=== PATIENT | female | born 1975 | race Caucasian/White ===

== ENCOUNTER 2018-10-12 17:58 | Emergency (ER) | payer MEDICAID ==
[~2018-10-12] VITALS: Wt 71.0 kg
[~2018-10-12 17:58] MED LIST: ACET325T33 PO; DOCU-144 PO; IBUP200C11 PO; NAPR-985 PO; POLY17PO6 PO
[2018-10-12] MEDS ORDERED: KETOROLAC 30 MG INJ IM STA (20:24)
[2018-10-12] MEDS ORDERED: DIPHENHYDRAMINE 25 MG CAP PO ONE (20:30)
[2018-10-12] MEDS ORDERED: METOCLOPRAMIDE 10 MG TAB PO ONE (20:30)
--- NOTE | 2018-10-12 20:33 | ERD ---
ER Documentation Chief Complaint Chief Complaint HEADACHE X 1 DAY HPI This is a 42-year-old female who presents to emerge department with complaints of headache for about a day. Complains of mild sensitivity to light . LMP: Last month. . Denies loss of consciousness, dizziness, neck pain, neck stiffness, throat pain, difficulty swallowing, difficulty breathing lying flat, shoulder pain, chest pain, back pain, abdominal pain, nausea, vomiting, constipation, diarrhea, urinary symptoms, or possibility being , loss of bowel and bladder control, trauma, injury, falls, difficulty walking due to pain, numbness or tingling sensation, calf pain, recent travel, recent major surgery in the last 3 weeks, calf pain, recent long travel, recent exposure to any illness, recent antibiotic use in the last 3 months, fever, chills, seizures. Past medical history: Surgical history: Appendectomy. Social: Denies smoking, use of alcoholic beverages, use of illegal drugs. ROS All systems reviewed and are negative except as per history of present illness. Medications Home Meds Active Scripts Diphenhydramine Hcl* (Benadryl*) 25 Mg Cap, 25 MG PO Q6 PRN for ITCHING, #30 TAB Prov:ALMASYAMILETHADOLFO F 10/12/18 Metoclopramide* (Reglan*) 10 Mg Tablet, 10 MG PO Q6 PRN for NAUSEA AND/OR VOMITING, #20 TAB Prov:PASILAADOLFO CARSON F 10/12/18 Xvlwepfhty-Knahskxrrupzb-Tsjvhtgs* (Fioricet*) 50-300-40 Mg Capsule, 1 CAP PO Q4H PRN for HEADACHE, #15 CAP Prov:ADOLFO SUAZO F 10/12/18 Polyethylene Glycol* (Miralax*) 17 Gm Powd.pack, 17 GM PO DAILY, #7 Prov:KAREN HAJI PA-C 07/05/16 Docusate Sodium* (Colace*) 100 Mg Capsule, 100 MG PO TID, #30 CAP Prov:KAREN HAJI PA-C 07/05/16 Acetaminophen* (Tylenol*) 325 Mg Tablet, 2 TAB PO Q8 PRN for PAIN AND OR ELEVATED TEMP, #20 TAB Prov:KATHY CERNA DO 07/05/16 Naproxen* (Naprosyn*) 500 Mg Tablet, 500 MG PO BID PRN for PAIN AND/OR INFLAMMATION, #14 TAB Prov:KATHY CERNA DO 07/05/16 Reported Medications Ibuprofen* (Advil*) 200 Mg Capsule, 200 MG PO PRN 11/10/11 Allergies Allergies: Coded Allergies: morphine (Verified Allergy, Unknown, 07/05/16) PMhx/Soc Medical and Surgical Hx: pt denies Medical Hx History of Surgery: Yes (APPENDECTOMY) Anesthesia Reaction: No Hx Neurological Disorder: No Hx Respiratory Disorders: No Hx Psychiatric Problems: No Hx Miscellaneous Medical Probl: No Hx Alcohol Use: Yes (SOCIALLY) Hx Substance Use: No Hx Tobacco Use: No Smoking Status: Never smoker Physical Exam Vitals Physical Exam Const: No acute distress Head: Atraumatic normocephalic. Scalp is intact. No vesicular lesion to the scalp area.. Eyes: Normal Conjunctiva. There is no visual field loss. There is no pain in eye movement. ENT: Normal External Ears, Nose and Mouth. Nose: There is no frontomaxillary sinus tenderness palpation. Neck: Full range of motion. No meningismus. Resp: Clear to auscultation bilaterally Cardio: Regular rate and rhythm, no murmurs Abd: Soft, non tender, non distended. Normal bowel sounds Skin: No petechiae or rashes Back: No midline or flank tenderness Ext: No cyanosis, or edema Neur: Awake and alert. No obvious facial droop. Equal pharmacy consultant. Equal strength in bilateral upper and lower extremities. Romberg test negative. No neurological deficits. Psych: Normal Mood and Affect Results 24 hrs Laboratory Tests Test 10/12/18 20:43 10/12/18 21:43 POC Beta HCG, Qualitative NEGATIVE Bedside Urine pH (LAB) 6.0 Bedside Urine Protein (LAB) Negative Bedside Urine Glucose (UA) Negative Bedside Urine Ketones (LAB) Negative Bedside Urine Blood Negative Bedside Urine Nitrite (LAB) Negative Bedside Urine Leukocyte Esterase (L Negative Current Medications Medications Dose Sig/[place] Start Time Status Last (Trade) Ordered Route PRN Stop Time Admin Dose Reason Admin Ketorolac 30 mg ONCE STAT 10/12/18 DC 10/12/18 Tromethamine IM 20:24 10/12/18 20:46 (Toradol) 20:27 10 mg ONCE ONCE 10/12/18 DC 10/12/18 Metoclopramid PO 20:30 10/12/18 20:45 e HCl 20:31 (Reglan) 25 mg ONCE ONCE 10/12/18 DC 10/12/18 Diphenhydrami PO 20:30 10/12/18 20:45 ne HCl 20:31 (Benadryl) Procedures/MDM Diagnostic tests: POC urine : Negative. POC urine dipstick: Negative. Treatment: Toradol IM. Benadryl p.o. Reglan p.o. Re-evaluation: Denies headache. Romberg test is negative. No neurological deficits. Differential diagnosis I have low suspicion for subarachnoid hemorrhage, skull fracture, syncopal episode. Final diagnosis: Headache. Prescription: Motrin. Reglan. Benadryl. Follow-up with PCP in the next 24-48 hours. Come back here in the emergency department for any new symptoms or any worsening symptoms. All questions and concerns were answered. Patient and family members verbalized understanding and agreed with plan of care. Hemodynamically stable on discharge. Departure Diagnosis: Primary Impression: Headache Condition: Stable Additional Instructions: Follow-up with PCP in the next 24-48 hours. Come back here in the emergency department for any new symptoms or any worsening symptoms. ADOLFO SUAZO Oct 12, 2018 20:33
[2018-10-12] MEDS ORDERED: BUTA1CAP38 PO (21:48)
[2018-10-12] MEDS ORDERED: BEN25 PO (21:49)
[2018-10-12] MEDS ORDERED: METO10TA92 PO (21:49)
[2018-10-12 22:14] VITALS: BP 107/68; PULSE 53; RESP 16
== END 2018-10-12 22:15 | disposition home or self-care (01) ==
LOC: FTE 17:58
DX: R51 Headache (principal)
CPT/HCPCS: 81003; 81025; J1885; Z7610; 96372

== ENCOUNTER 2018-11-07 07:56 | Emergency (ER) | payer MEDICAID ==
[~2018-11-07] VITALS: Ht 157.5 cm; Wt 62.0 kg
[~2018-11-07 07:56] MED LIST changes: +BEN25 PO; +BUTA1CAP38 PO; +METO10TA92 PO
[2018-11-07 07:57] VITALS: BP 120/58; PULSE 52; RESP 19; Ht 157.5 cm; Wt 62.0 kg
[2018-11-07] MEDS ORDERED: IBUP-1542 PO (08:42)
--- NOTE | 2018-11-07 12:06 | ERD ---
ER Documentation Chief Complaint Chief Complaint LEFT LEG PAIN HPI 42-year-old female presenting with pain to left leg. She states the pain is in her foot after she ran 2 days ago. She denies any falls or trips. She feels that there is a bump and is concerned that there is something going wrong with her bone. She sometimes has a shooting pain up her foot. She took Advil last night but no medication today. Denies any warmth or swelling. Denies medical problems. NKDA. Surgical history is appendectomy. Social history denies ROS All systems reviewed and are negative except as per history of present illness. Medications Home Meds Active Scripts Ibuprofen* (Motrin*) 600 Mg Tab, 600 MG PO Q6, #30 TAB Prov:EVANGELINA NAIK PA-C 11/07/18 Diphenhydramine Hcl* (Benadryl*) 25 Mg Cap, 25 MG PO Q6 PRN for ITCHING, #30 TAB Prov:NIXONROSAADOLFO F 10/12/18 Metoclopramide* (Reglan*) 10 Mg Tablet, 10 MG PO Q6 PRN for NAUSEA AND/OR VOMITING, #20 TAB Prov:ALMASAYMILETHADOLFO F 10/12/18 Iypapaqltq-Csfjfhbcuoqlc-Epqrpmhl* (Fioricet*) 50-300-40 Mg Capsule, 1 CAP PO Q4H PRN for HEADACHE, #15 CAP Prov:ADOLFO SUAZO F 10/12/18 Polyethylene Glycol* (Miralax*) 17 Gm Powd.pack, 17 GM PO DAILY, #7 Prov:KAREN HAJI PA-C 07/05/16 Docusate Sodium* (Colace*) 100 Mg Capsule, 100 MG PO TID, #30 CAP Prov:KAREN HAJI PA-C 07/05/16 Acetaminophen* (Tylenol*) 325 Mg Tablet, 2 TAB PO Q8 PRN for PAIN AND OR ELEVATED TEMP, #20 TAB Prov:KATHY CERNA 07/05/16 Naproxen* (Naprosyn*) 500 Mg Tablet, 500 MG PO BID PRN for PAIN AND/OR INFLAMMATION, #14 TAB Prov:KATHY CERNA DO 07/05/16 Reported Medications Ibuprofen* (Advil*) 200 Mg Capsule, 200 MG PO PRN 11/10/11 Allergies Allergies: Coded Allergies: morphine (Verified Allergy, Unknown, 07/05/16) PMhx/Soc History of Surgery: Yes (APPENDECTOMY) Anesthesia Reaction: No Hx Neurological Disorder: No Hx Respiratory Disorders: No Hx Psychiatric Problems: No Hx Miscellaneous Medical Probl: No Hx Alcohol Use: Yes (SOCIALLY) Hx Substance Use: No Hx Tobacco Use: No FmHx Family History: No diabetes, No coronary disease, No other Physical Exam Vitals Vital Signs Date Temp Pulse Resp B/P (MAP) Pulse Ox O2 O2 Flow FiO2 Time Delivery Rate 11/07/18 97.4 52 19 120/58 100 07:57 (78) Physical Exam GENERAL: The patient is well-appearing, well-nourished, in no acute distress CHEST: Clear to auscultation bilaterally. There are no rales, wheezes or rhonchi. HEART: Regular rate and rhythm. No murmurs, clicks, rubs or gallops. EXTREMITIES: Mild tenderness palpation over the medial aspect of the left foot, superior to the arch. No swelling. Pulses intact. Normal flexion extension and strength 5 out of 5. NEUROLOGIC: Motor strength in all 4 extremities with 5 out of 5 strength. Sensation grossly intact. SKIN: There is no apparent rash or petechiae. The skin is warm and dry. Procedures/MDM DIAGNOSTIC IMAGING REPORT Patient: EDUAR DEVRIES : 1975 Age: 42 Sex: F MR #: [id number] DOS: 11/07/18 0812 Ordering MD: ROSIO NAIK PA-C Location: [facility] Room/Bed: PROCEDURE: Left foot series CLINICAL INDICATION: Pain TECHNIQUE: AP lateral and oblique images left foot were obtained COMPARISON: None FINDINGS: No evidence of acute fracture dislocation. The bony mineralization is normal. No focal bony blastic or lytic lesions. No evidence of erosions. Soft tissues are unremarkable. Small soft tissue ossification along the anterior distal left tib ia likely dystrophic calcification from previous trauma. IMPRESSION: No evidence acute fractures dislocations or erosions. MDM: 42-year-old female presenting with pain to foot. Patient's x-rays are within normal limits. I have low suspicion for acute fracture dislocation. I have low suspicion for bacterial infection. Patient is discharged with strict ER precautions and told to follow-up with primary care. Patient is recommended to rest and isolate and elevate the foot. Departure Diagnosis: Primary Impression: Foot pain Condition: Stable Patient Instructions: Sprain Foot Referrals: [facility] YOU HAVE RECEIVED A MEDICAL SCREENING EXAM AND THE RESULTS INDICATE THAT YOU DO NOT HAVE A CONDITION THAT REQUIRES URGENT TREATMENT IN THE EMERGENCY DEPARTMENT. FURTHER EVALUATION AND TREATMENT OF YOUR CONDITION CAN WAIT UNTIL YOU ARE SEEN IN YOUR DOCTORS OFFICE WITHIN THE NEXT 1-2 DAYS. IT IS YOUR RESPONSIBILITY TO MAKE AN APPOINTMENT FOR FOLOW-UP CARE. IF YOU HAVE A PRIMARY DOCTOR --you should call your primary doctor and schedule an appointment IF YOU DO NOT HAVE A PRIMARY DOCTOR YOU CAN CALL OUR PHYSICIAN REFERRAL HOTLINE AT IF YOU CAN NOT AFFORD TO SEE A PHYSICIAN YOU CAN CHOSE FROM THE FOLLOWING [facility] CLINICS [facility] [address] [facility] [facility] [address] [facility] [facility] [address] [facility] [address] [facility] [address] [facility] [address] Additional Instructions: FOLLOW UP WITH YOUR PRIMARY CARE PHYSICIAN TOMORROW.Return to this facility if you are not improving as expected. EVANGELINA NAIK PA-C Nov 07, 2018 12:06
== END 2018-11-07 08:49 | disposition home or self-care (01) ==
LOC: FTE 07:56
DX: M79.672 Pain in left foot (principal)
CPT/HCPCS: 73630; Z7502